=== PATIENT | male | born 1965 | race Caucasian/White ===

== ENCOUNTER 2017-02-08 12:13 | Emergency (ER) | payer OTHER ==
[~2017-02-08] VITALS: Ht 182.9 cm; Wt 95.7 kg
[2017-02-08 12:20] VITALS: TEMP 36.7; Ht 182.9 cm; Wt 95.7 kg
[2017-02-08] MEDS ORDERED: PROPARACAINE HCL 0.5% OP SOLN 15 ML BTL OP STA (12:24)
[2017-02-08] MEDS ORDERED: TRIMETHOPRIM/POLYMYXIN B OP STA (13:07)
--- NOTE | 2017-02-08 13:07 | EMERGENCY ROOM VISIT NOTE ---
ED Visit Note First contact with patient: 12:23 CHIEF COMPLAINT: Possible foreign body left eye HISTORY OF PRESENT ILLNESS: This 51-year-old male presents the ER with chief complaint that he thinks he might of gotten drill shavings in his left eye. The patient states that this occurred at work. 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 The patient states that his vision went a little blurry. He denies any eye pain but does admit to left eye irritation. He flushed the eye out early at work. REVIEW OF SYSTEMS:6 system review was performed and was negative unless stated otherwise in history of present illness. PMH: The patient is healthy; migraine SOCIAL HISTORY: Patient lives at home. The patient denies any tobacco or alcohol use. PHYSICAL EXAM: Vital Signs: Were reviewed Reviewed Nurse's notes. GENERAL: 51- year-old male appears in no acute distress. MENTAL Status: Alert and oriented 3. Eyes: The pupils are round, equal, and react to light. EOMs are full. There is discharge of clear tears from the left eye which is injected. There is no foreign body visible under athe eyelid even after lid eversion. No foreign body was seen embedded in the cornea. The cornea was clear and no hyphema was seen. Fluorescein uptake was not observed with ultraviolet light EMERGENCY DEPARTMENT COURSE: The fluorescein was irrigated away and Polytrim eyedrops 1 drop into the left eye and was given the remainder of the bottle to treat at home. DIAGNOSIS: Left eye irritation DISCHARGE INSTRUCTIONS AND TREATMENT: Polytrim eyedrops 1 drop in the left eye every 3 hours while awake for the next 5-7 days. If you have any worsening of symptoms, recommend follow-up with ophthalmology or return to ER. Current/Historical Medications Miscellaneous Medications None (Patient States No Home Meds) Allergies Coded Allergies: No Known Allergies (Unverified , 05/20/11) Vital Signs Date Time Temp Pulse Resp B/P (MAP) Pulse Ox O2 Delivery O2 Flow Rate FiO2 02/08/17 12:20 36.7 77 20 140/83 99 Room Air Departure Information Referrals No Doctor, Assigned (PCP) Patient Instructions [facility]
[2017-02-08 13:20] VITALS: BP 142/86; PULSE 80; O2SAT 99
== END 2017-02-08 13:21 | disposition home or self-care (01) ==
LOC: C.EDB 12:14 → C.EDD 13:21
DX: H57.8 Other specified disorders of eye and adnexa (principal)